=== PATIENT | male | born 1995 | race Caucasian/White ===

== ENCOUNTER 2018-05-18 20:15 | Emergency (ER) | payer OTHER ==
[2018-05-18 20:24] VITALS: BP 119/84
[2018-05-18] MEDS ORDERED: FAMOTIDINE INJ/PF 20 MG/2 ML SDV IV ONE (20:30)
[2018-05-18] MEDS ORDERED: ONDANSETRON HCL INJ/PF 4 MG/2 ML SDV IV ONE (20:30)
[2018-05-18] MEDS ORDERED: NORMAL SALINE 1000 ML 1,000 ML IV ONE (20:30)
--- NOTE | 2018-05-18 20:33 | ER Document Report ---
ED Medical Screen (RME) - General Chief Complaint: Nausea/Vomiting Stated Complaint: VOMITING Time Seen by Provider: 05/18/18 20:29 Notes: 23-year-old male to emergency department for chief complaint of nausea and vomiting. States that symptoms of been present for approximately 1 week. Cannot seem to keep anything down. States that he has lost about 100 pounds over the last year doing an herbal life and low-carb diet. Has not been able to even think about food without vomiting. Denies any increased thirst. No change in mental status. No other major medical problems. Complaining of some mild crampy abdominal pain mostly in the epigastric right upper quadrant region. Denies any diarrhea. Denies any black or tarry colored stools. I have greeted and performed a rapid initial assessment of this patient. A comprehensive ED assessment and evaluation of the patient, analysis of test results and completion of the medical decision making process will be conducted by additional ED providers. TRAVEL OUTSIDE OF THE [place] IN LAST 30 DAYS: No - HPI Onset: Last week - Related Data Allergies/Adverse Reactions: amoxicillin [Amoxicillin] Allergy (Intermediate, Verified 09/18/11 19:42) Edema Past Medical History - Social History Chew tobacco use (# tins/day): No Frequency of alcohol use: None Drug Abuse: None Lives with: Family Family history: Reviewed & Not Pertinent Renal/ Medical History: Denies: Hx Peritoneal Dialysis - Immunizations Immunizations up to date: Yes Hx Diphtheria, Pertussis, Tetanus Vaccination: Yes Review of Systems - Review of Systems Constitutional: Weakness. denies: Fever, Malaise EENT: denies: Difficulty swallowing, Throat swelling Cardiovascular: denies: Chest pain, Palpitations, Heart racing Respiratory: denies: Cough, Hurts to breathe, Short of breath Gastrointestinal: Abdominal pain, Nausea, Vomiting Genitourinary: denies: Dysuria, Discharge Musculoskeletal: denies: Back pain, Joint pain, Muscle pain Neurological/Psychological: denies: Confusion, Weakness, Numbness Physical Exam - Vital signs Vitals: Temp Pulse Resp BP Pulse Ox 99.0 F 72 16 119/84 100 05/18/18 20:23 05/18/18 20:23 05/18/18 20:23 05/18/18 20:23 05/18/18 20:23 Interpretation: Normal - Abdominal Inspection: Normal Distension: No distension Tenderness: Tender - Mild epigastric tenderness. No guarding or rebound. Organomegaly: No organomegaly Course - Vital Signs Vital signs: Temp Pulse Resp BP Pulse Ox 99.0 F 72 16 119/84 100 05/18/18 20:23 05/18/18 20:23 05/18/18 20:23 05/18/18 20:23 05/18/18 20:23 Doctor's Discharge - Discharge Referrals: DILLON WILLIAM CRNP [Primary Care Provider] - Follow up as needed
[2018-05-18 20:57] LABS: APPEARANCE,URINE CLEAR; BILIRUBIN,URINE NEGATIVE (NEGATIVE); COLOR,URINE YELLOW; GLUCOSE, URINE NEGATIVE (NEGATIVE); KETONES,URINE NEGATIVE (NEGATIVE); LEUKOCYTE ESTERASE,URINE NEGATIVE (NEGATIVE); NITRITE,URINE NEGATIVE (NEGATIVE); PROTEIN,URINE NEGATIVE (NEGATIVE); URINE SPECIFIC GRAVITY 1.014; UROBILINOGEN,URINE NEGATIVE mg/dL (<2.0)
[2018-05-18 21:02] LABS: ABSOLUTE BASOPHILS # (AUTO) 0.1 10^3/uL (0.0-0.2); ABSOLUTE EOSINOPHILS # (AUTO) 0.7 10^3/uL (0.0-0.6); ABSOLUTE LYMPHOCYTES (AUTO) 1.4 10^3/uL (0.5-4.7); ABSOLUTE MONOCYTES (AUTO) 0.4 10^3/uL (0.1-1.4); ABSOLUTE NEUT (AUTO) 4.3 10^3/uL (1.7-8.2); BASOPHILS % (AUTO) 1.3 % (0-2); EOSINOPHILS % (AUTO) 10.6 % (0-6); HEMATOCRIT 45.2 % (37.9-51.0); HEMOGLOBIN 15.7 g/dL (13.5-17.0); LYMPHOCYTES % (AUTO) 20.7 % (13-45); MEAN CORPUSCULAR HEMOGLOBIN 28.9 pg (27.0-33.4); MEAN CORPUSCULAR HGB CONC 34.7 g/dL (32.0-36.0); MEAN CORPUSCULAR VOLUME 84 fl (80-97); MONOCYTES % (AUTO) 6.3 % (3-13); PLATELET COUNT 225 10^3/uL (150-450); RED BLOOD COUNT 5.42 10^6/uL (4.35-5.55); SEGMENTED NEUTROPHILS % (AUTO) 61.1 % (42-78); TOTAL CELLS COUNTED % (AUTO) 100 %
--- NOTE | 2018-05-18 21:21 | ER Document Report ---
ED General - General Mode of Arrival: Ambulatory Information source: Patient TRAVEL OUTSIDE OF THE [place] IN LAST 30 DAYS: No <RADHA PIERSON - Last Filed: 05/18/18 21:48> <TRUONG VANEGAS - Last Filed: 05/18/18 23:52> - General Chief Complaint: Nausea/Vomiting Stated Complaint: VOMITING Time Seen by Provider: 05/18/18 20:29 Notes: Patient is a 23 year old male presenting to the emergency department complaining of nausea onset 1 week ago and vomiting onset 4 days ago. Patient states he is unable to keep food down, further stating his nausea and vomiting is exacerbated when eating. He further states he feels fluids and solids stopped senior care down his esophagus. (RADHA PIERSON) - Related Data Allergies/Adverse Reactions: amoxicillin [Amoxicillin] Allergy (Intermediate, Verified 09/18/11 19:42) Edema Past Medical History - General Information source: Patient - Social History Smoking Status: Current Some Day Smoker Cigarette use (# per day): No - Vapes Chew tobacco use (# tins/day): No Frequency of alcohol use: None Drug Abuse: None Lives with: Family Family History: None Patient has suicidal ideation: No Patient has homicidal ideation: No - Immunizations Immunizations up to date: Yes Hx Diphtheria, Pertussis, Tetanus Vaccination: Yes <RADHA PIERSON - Last Filed: 05/18/18 21:48> Review of Systems - Review of Systems Constitutional: No symptoms reported EENT: No symptoms reported Cardiovascular: No symptoms reported Respiratory: No symptoms reported Gastrointestinal: See HPI, Nausea, Vomiting Genitourinary: No symptoms reported Male Genitourinary: No symptoms reported Musculoskeletal: No symptoms reported Skin: No symptoms reported Hematologic/Lymphatic: No symptoms reported Neurological/Psychological: No symptoms reported -: Yes All other systems reviewed and negative <RADHA PIERSON - Last Filed: 05/18/18 21:48> Physical Exam - General General appearance: Appears well, Alert, Other - Frequently spitting thick saliva in vomit bag at bedside. In distress: None - HEENT Head: Normocephalic, Atraumatic Eyes: Normal Conjunctiva: Normal Extraocular movements intact: Yes Pupils: PERRL Mucous membranes: Normal Neck: Normal - Respiratory Respiratory status: No respiratory distress Chest status: Nontender Breath sounds: Normal Chest palpation: Normal - Cardiovascular Rhythm: Regular Heart sounds: Normal auscultation Murmur: No Friction rub: No Gallop: None auscultated - Abdominal Inspection: Normal - Back Back: Normal - Extremities General upper extremity: Normal ROM General lower extremity: Normal ROM - Neurological Neuro grossly intact: Yes Cognition: Normal Orientation: AAOx4 [place] Coma Scale Eye Opening: Spontaneous [place] Coma Scale Verbal: Oriented [place] Coma Scale Motor: Obeys Commands [place] Coma Scale Total: 15 Speech: Normal - Psychological Associated symptoms: Normal affect, Normal mood - Skin Skin Temperature: Warm Skin Moisture: Dry Skin Color: Normal <RADHA PIERSON - Last Filed: 05/18/18 21:48> - Vital signs Vitals: Temp Pulse Resp BP Pulse Ox 99.0 F 72 16 119/84 100 05/18/18 20:23 05/18/18 20:23 05/18/18 20:23 05/18/18 20:23 05/18/18 20:23 Course - Laboratory Result Diagrams: 05/18/18 20:35 05/18/18 20:35 <RADHA PIERSON - Last Filed: 05/18/18 21:48> - Laboratory Result Diagrams: 05/18/18 20:35 05/18/18 21:37 <TRUONG VANEGAS - Last Filed: 05/18/18 23:52> - Re-evaluation Re-evalutation: 05/18/18 23:46 After the patient received Reglan IV, he has been able to tolerate p.o. fluids without any difficulty. He also reports he does feel much better. (TRUONG VANEGAS) - Vital Signs Vital signs: Temp Pulse Resp BP Pulse Ox 99.0 F 72 16 119/84 100 05/18/18 20:23 05/18/18 20:23 05/18/18 20:23 05/18/18 20:23 05/18/18 20:23 - Laboratory Laboratory results interpreted by me: 05/18/18 05/18/18 20:35 21:37 Eosinophils % 10.6 H Absolute Eosinophils 0.7 H AST 16 L Discharge <RADHA PIERSON - Last Filed: 05/18/18 21:48> <TRUONG VANEGAS - Last Filed: 08/03/18 23:52> - Discharge Clinical Impression: Nausea and vomiting Qualifiers: Vomiting type: unspecified Vomiting Intractability: non-intractable Qualified Code(s): R11.2 - Nausea with vomiting, unspecified Condition: Stable Disposition: HOME, SELF-CARE Additional Instructions: Nausea or Vomiting, Nonspecific: Vomiting (or nausea without vomiting) can be caused by many different problems. Of course, it can mean that something's wrong with the stomach, such as "stomach flu," ulcers, or inflammation. But it can also be a symptom of a problem that has nothing to do with the stomach or intestines. Vomiting is common with severe headaches, earaches, and tonsillitis. We see it with pneumonia or heart attacks. Drugs can cause nausea. Many abdominal problems cause vomiting; for example, gallstones, kidney stones, pancreatitis, and intestinal obstruction (blocked bowels). In most cases, curing the vomiting depends on fixing the problem that caused it. For temporary relief, we may use an anti-nausea medicine. For home use, we can prescribe suppositories, chewable pills, pills that dissolve in the mouth, or liquid anti-nausea drugs. If the vomiting seems to be caused by a problem in the stomach, acid-suppressing drugs may be prescribed as well. It's important to avoid dehydration. Sip clear liquids. Take increasing amounts of fluid over the first 24 hours. Then start small amounts of bland foods (such as dry toast, applesauce, mashed potato). Avoid aspirin, tobacco, and alcohol. Gradually resume your usual diet. If the vomiting worsens, if the problem that's making you vomit worsens, or if there's evidence of bleeding in the stomach (such as black, tarry stool, bloody or black vomit, or lightheadedness), you should return immediately. Call your doctor if you aren't improved in 24 to 36 hours. Take the medications as prescribed for your nausea. Drink small sips of cool clear liquids for the next 1-2 days. Follow-up with a local medical doctor if not improving. RETURN TO THE EMERGENCY ROOM IF ANY NEW OR WORSENING SYMPTOMS. Prescriptions: Metoclopramide HCl [Reglan 10 mg Tablet] 1 tab PO ASDIR PRN #12 tablet PRN Reason: Forms: Return to Work Referrals: DILLON WILLIAM CRNP [COMMUNITY BASED STAFF] - Follow up as needed Scribe Attestation: 05/18/18 22:41 I personally performed the services described in the documentation, reviewed and edited the documentation which was dictated to the scribe in my presence, and it accurately records my words and actions. (TRUONG VANEGAS) Scribe Documentation - Scribe Written by Caroe:: Janes Isidro, 05/18/2018 21:51 acting as scribe for :: Eddie <RADHA PIERSON - Last Filed: 05/18/18 21:48>
[2018-05-18 22:31] LABS: ALANINE AMINOTRANSFERASE 24 U/L (21-72); ALBUMIN 4.2 g/dL (3.5-5.0); ALKALINE PHOSPHATASE 60 U/L (38-126); ANION GAP 12 (5-19); ASPARTATE AMINO TRANSFERASE 16 U/L (17-59); BILIRUBIN,DIRECT 0.2 mg/dL (0.0-0.4); BILIRUBIN,TOTAL 0.7 mg/dL (0.2-1.3); BLOOD UREA NITROGEN 8 mg/dL (7-20); CALCIUM 9.6 mg/dL (8.4-10.2); CARBON DIOXIDE 27 mmol/L (22-30); CHLORIDE 106 mmol/L (98-107); GLUCOSE 85 mg/dL (75-110); LIPASE 38.7 U/L (23-300); POTASSIUM 3.9 mmol/L (3.6-5.0); SODIUM 144.9 mmol/L (137-145); TOTAL PROTEIN 6.8 g/dL (6.3-8.2)
[2018-05-18] MEDS ORDERED: METOCLOPRAMIDE HCL INJ/PF 10 MG/2 ML SDV IV ONE (22:58)
[2018-05-18] MEDS ORDERED: DEXTROSE 5%-LACTATED RINGERS 1,000 ML IV ONE (22:58)
--- NOTE | 2018-05-18 23:01 | RADIOLOGY REPORT (SQ) ---
EXAM DESCRIPTION: US ABDOMEN LIMITED COMPLETED DATE/TME: 05/18/2018 20:30 CLINICAL HISTORY: 23 years Male, ruq and epigastric pain Comparison: None. LIMITATIONS: None. FINDINGS: Gallbladder, negative sonographic Gore's test, liver, a 0.3-cm diameter common bile duct, no intrahepatic ductal dilation, 11-cm right kidney, pancreas, visualized vasculature/abdominal aorta, and no significant ascites appear otherwise unremarkable. IMPRESSION: Normal RUQ-Abdominal Sonogram.
[2018-05-18] MEDS ORDERED: ONDANSETRON ODT 4 MG TAB (6 TAB/ER DISP) PO PRN (23:52)
[2018-05-18] MEDS ORDERED: RINGERS SOLUTION,LACTATED 1,000 ML IV ONE (23:59)
== END 2018-05-19 00:21 | disposition home or self-care (01) ==
LOC: ER 20:15
DX: R11.2 Nausea with vomiting, unspecified (principal); F17.200 Nicotine dependence, unspecified, uncomplicated; Z88.0 Allergy status to penicillin
CPT/HCPCS: 99284; 96361; 96374; 96375; 36415; 83690; 85025; 80053; 81001; 76705; J2765; J2405; J7030; S0028

== ENCOUNTER 2020-11-13 17:13 | Emergency (ER) | payer BC, OTHER ==
[2020-11-13 19:52] LABS: ABSOLUTE BASOPHILS # (AUTO) 0.1 10^3/uL (0.0-0.2); ABSOLUTE EOSINOPHILS # (AUTO) 0.7 10^3/uL (0.0-0.6); ABSOLUTE LYMPHOCYTES (AUTO) 1.5 10^3/uL (0.5-4.7); ABSOLUTE MONOCYTES (AUTO) 0.5 10^3/uL (0.1-1.4); ABSOLUTE NEUT (AUTO) 3.7 10^3/uL (1.7-8.2); BASOPHILS % (AUTO) 1.4 % (0-2); EOSINOPHILS % (AUTO) 10.2 % (0-6); HEMATOCRIT 45.5 % (37.9-51.0); HEMOGLOBIN 15.7 g/dL (13.5-17.0); LYMPHOCYTES % (AUTO) 23.2 % (13-45); MEAN CORPUSCULAR HEMOGLOBIN 28.5 pg (27.0-33.4); MEAN CORPUSCULAR HGB CONC 34.5 g/dL (32.0-36.0); MEAN CORPUSCULAR VOLUME 83 fl (80-97); MONOCYTES % (AUTO) 8.3 % (3-13); PLATELET COUNT 232 10^3/uL (150-450); RED BLOOD COUNT 5.51 10^6/uL (4.35-5.55); RED CELL DISTRIBUTION WIDTH 12.6 % (11.5-14.0); SEGMENTED NEUTROPHILS % (AUTO) 56.9 % (42-78); TOTAL CELLS COUNTED % (AUTO) 100 %; WHITE BLOOD COUNT 6.6 10^3/uL (4.0-10.5)
[2020-11-13 20:03] LABS: ALBUMIN 4.7 g/dL (3.5-5.0); ALKALINE PHOSPHATASE 77 U/L (38-126); ANION GAP 9 (5-19); ASPARTATE AMINO TRANSFERASE 27 U/L (17-59); BILIRUBIN,DIRECT 0.1 mg/dL (0.0-0.4); BILIRUBIN,TOTAL 0.7 mg/dL (0.2-1.3); BLOOD UREA NITROGEN 12 mg/dL (7-20); CARBON DIOXIDE 29 mmol/L (22-30); CHLORIDE 101 mmol/L (98-107); GLUCOSE 96 mg/dL (75-110); POTASSIUM 4.3 mmol/L (3.6-5.0); TOTAL PROTEIN 7.5 g/dL (6.3-8.2)
[2020-11-13 20:05] LABS: APPEARANCE,URINE CLEAR; BILIRUBIN,URINE NEGATIVE (NEGATIVE); COLOR,URINE YELLOW; GLUCOSE, URINE NEGATIVE (NEGATIVE); KETONES,URINE NEGATIVE (NEGATIVE); LEUKOCYTE ESTERASE,URINE NEGATIVE (NEGATIVE); NITRITE,URINE NEGATIVE (NEGATIVE); PROTEIN,URINE NEGATIVE (NEGATIVE); UROBILINOGEN,URINE NEGATIVE mg/dL (<2.0)
[2020-11-13 20:08] LABS: A TYPE INFLUENZA AG NEGATIVE (NEGATIVE); B INFLUENZA AG NEGATIVE (NEGATIVE)
--- NOTE | 2020-11-13 21:05 | ER Document Report ---
ED General - General Chief Complaint: Abdominal Pain Stated Complaint: CONGESTION Time Seen by Provider: 11/13/20 20:26 Mode of Arrival: Ambulatory Information source: Patient Notes: Patient presents to the emergency department concern for abdominal pain and congestion. He reports he has been having intermittent abdominal cramping for the past week. He denies any fever, chills, nausea, vomiting or diarrhea. He reports his last normal bowel movement was yesterday. He denies any obvious known exposure to Covid. He currently has no pain. TRAVEL OUTSIDE OF THE [place] IN LAST 30 DAYS: No - Related Data Allergies/Adverse Reactions: amoxicillin [Amoxicillin] Allergy (Intermediate, Verified 09/18/11 19:42) Edema Past Medical History - General Information source: Patient - Social History Smoking Status: Current Every Day Smoker Frequency of alcohol use: None Drug Abuse: None Family History: None - Medical History Medical History: Negative Renal/ Medical History: Denies: Hx Peritoneal Dialysis Surgical Hx: Negative - Immunizations Immunizations up to date: Yes Hx Diphtheria, Pertussis, Tetanus Vaccination: Yes Review of Systems - Review of Systems EENT: Nose congestion Gastrointestinal: Abdominal pain -: Yes All other systems reviewed and negative Physical Exam - Vital signs Vitals: Temp Pulse Resp BP Pulse Ox 97.4 F 77 18 124/83 100 11/13/20 17:18 11/13/20 17:18 11/13/20 17:18 11/13/20 17:18 11/13/20 17:18 - Notes Notes: PHYSICAL EXAMINATION: GENERAL: Well-appearing, well-nourished and in no acute distress. HEAD: Atraumatic, normocephalic. EYES: Pupils equal round and reactive to light, extraocular movements intact, sclera anicteric, conjunctiva are normal. ENT: Nares patent, oropharynx clear without exudates. Moist mucous membranes. NECK: Normal range of motion, supple without lymphadenopathy LUNGS: Breath sounds clear to auscultation bilaterally and equal. No wheezes rales or rhonchi. HEART: Regular rate and rhythm without murmurs ABDOMEN: Soft, nontender, nondistended abdomen. No guarding, no rebound. No masses appreciated. Musculoskeletal: Normal range of motion, no pitting or edema. No cyanosis. NEUROLOGICAL: Cranial nerves grossly intact. Normal speech, normal gait. Normal sensory, motor exams PSYCH: Normal mood, normal affect. SKIN: Warm, Dry, normal turgor, no rashes or lesions noted. Course - Re-evaluation Re-evalutation: This patient was seen in triage By DENISA Watson who initiated his orders including the CAT scan. Patient's work-up today has been reassuring. Laboratory investigations are unremarkable. CT abdomen pelvis is also unremarkable. Patient reports he only has intermittent abdominal cramping. He has a pending Covid test. Patient be discharged home at this time. ED return precautions discussed, patient verbalized understanding and agreement with same. The patient's emergency department workup and current diagnosis were explained to the patient and or family. Follow-up instructions were provided. Medications if prescribed were discussed. Instructions for when to return to the emergency department including specific worrisome symptoms were discussed with the patient and/or family. - Vital Signs Vital signs: Temp Pulse Resp BP Pulse Ox 97.6 F 60 16 121/83 100 11/13/20 23:10 11/13/20 23:10 11/13/20 23:10 11/13/20 23:10 11/13/20 23:10 - Laboratory Results Result Diagrams: 11/13/20 19:28 11/13/20 19:28 Laboratory Results Interpreted: 11/13/20 19:28 Eos % (Auto) 10.2 H Absolute Eos (auto) 0.7 H Critical Laboratory Results Reviewed: No Critical Results - Radiology Results Critical Radiology Results Reviewed: No Critical Results Discharge - Discharge Clinical Impression: Abdominal cramping, Encounter for laboratory testing for COVID-19 virus Condition: Stable Disposition: HOME, SELF-CARE Instructions: COVID-19 Guidance for Persons Under Investigation Additional Instructions: Push fluids. Get plenty of rest. Tylenol or Motrin for fever and body aches. Take medication as prescribed for abdominal cramping. Good handwashing and stay away from others. Your COVID-19 test is pending, please self quarantine until you have received the results and further guidance from the health department. Return to the emergency department with any new or worsening symptoms such as difficulty breathing, or any other worsening symptoms. Prescriptions: Dicyclomine HCl [Bentyl 20 mg Tablet] 20 mg PO QID PRN #20 tablet PRN Reason: Abdominal Cramping Forms: Return to Work
--- NOTE | 2020-11-13 21:40 | RADIOLOGY REPORT (SQ) ---
CLINICAL INDICATION: perimbulicial abdominal pain. . TECHNIQUE: Contrast enhanced spiral axial CT imaging was obtained of the abdomen and pelvis with multiplanar reconstructions. This exam was performed according to our departmental dose-optimization program, which includes automated exposure control, adjustment of the mA and/or kV according to patient size and/or use of iterative reconstruction techniques. Additional delayed phase imaging COMPARISON: February 13, 2013. CORRELATION: None. FINDINGS: Abdomen: The lung bases are grossly clear. The heart is of normal size. No evidence of pleural or pericardial fluid. The liver is of normal size contour and attenuation. The gallbladder is nondistended without inflammatory change. The pancreas is unremarkable. The spleen is unremarkable. The adrenals are unremarkable. The kidneys appear grossly normal without evidence of urolithiasis or hydronephrosis. There is no evidence of free air. No free fluid. No bulky adenopathy. Abdominal aorta is nonaneurysmal. Pelvis: The bowel is nonobstructed. The bowel is unopacified with oral contrast. Pelvic contents are unremarkable. The appendix is not seen. No focal inflammatory change. Visualized bones are unremarkable. IMPRESSION: No acute intra-abdominal process is identified. The cause of the patient's abdominal pain is not identified on this examination..
[2020-11-13 23:18] VITALS: BP 121/83
== END 2020-11-13 23:19 | disposition home or self-care (01) ==
LOC: ER 17:13
DX: R10.9 Unspecified abdominal pain (principal); R68.89 Other general symptoms and signs; F17.200 Nicotine dependence, unspecified, uncomplicated; Z20.822 Contact with and (suspected) exposure to COVID-19; Z88.0 Allergy status to penicillin
CPT/HCPCS: 99285; 36415; 83690; 85025; 80053; 81001; 87804; 74177; U0003; C9803; 87635